=== PATIENT | male | born 1985 | race Caucasian/White ===

== ENCOUNTER 2020-04-11 00:34 | Emergency (ER) | payer MEDICAID ==
[~2020-04-11] VITALS: Ht 188 cm; Wt 87.8 kg
[2020-04-11 00:53] VITALS: BP 128/80
[2020-04-11] MEDS ORDERED: OMEP20TA62 PO (01:16)
[2020-04-11 01:41] LABS: BASOPHILS # (AUTO) 0.03 x10^3/uL (0-0.1); BASOPHILS % (AUTO) 0 % (0-1); EOSINOPHILS # (AUTO) 0.19 x10^3/uL (0-0.4); EOSINOPHILS % (AUTO) 3 % (1-7); LYMPHOCYTES % (AUTO) 30 % (22-44); MD NO; MEAN CORPUSCULAR HEMOGLOBIN 30.6 pg (27.5-34.5); MEAN CORPUSCULAR HGB CONC 33.8 g/dL (33.2-36.2); MEAN CORPUSCULAR VOLUME 90.5 fL (81-97); MEAN PLATELET VOLUME 8.3 fL (7.4-10.4); MONOCYTES # (AUTO) 0.52 x10^3/uL (0.2-0.8); MONOCYTES % (AUTO) 7 % (2-9); NEUTROPHILS # (AUTO) 4.34 x10^3/uL (1.8-6.8); NEUTROPHILS % (AUTO) 60 % (42-75); PLATELET COUNT 267 x10^3/uL (130-400)
[2020-04-11 01:52] LABS: ALBUMIN 4.5 g/dL (3.4-5.0); ANION GAP 6 mmol/L (5-15); CALCIUM 9.2 mg/dL (8.5-10.1); CHLORIDE 108 mmol/L (98-107); CREATININE 1.18 mg/dL (0.7-1.3)
[2020-04-11 01:56] LABS: TROPONIN I < 0.015 ng/mL (0.000-0.045)
[2020-04-11] MEDS ORDERED: IBUPROFEN 200 MG TABLET ONE (01:56)
[2020-04-11] MEDS ORDERED: IBUPROFEN 800 MG TABLET ONE (01:58)
[2020-04-11] MEDS ORDERED: IBUPROFEN 800 MG TABLET PO ONE (02:00)
--- NOTE | 2020-04-11 02:01 | NUR ---
MEDICATED PER NOV. PROVIDED SNACK.
== END 2020-04-11 02:38 | disposition home or self-care (01) ==
LOC: ED 02:06
DX: R07.89 Other chest pain (principal); R09.1 Pleurisy; R94.31 Abnormal electrocardiogram [ECG] [EKG]; Z87.891 Personal history of nicotine dependence
CPT/HCPCS: 36415; 71045; 80048; 82040; 84484; 85025; 93005; 99285